=== PATIENT | female | born 1980 | race Caucasian/White ===

== ENCOUNTER 2016-06-13 14:35 | Emergency (ER) | payer OTHER ==
[~2016-06-13] VITALS: Ht 162.6 cm; Wt 66.2 kg
[~2016-06-13 14:35] MED LIST: OXYC1TAB3 PO
[2016-06-13 14:38] VITALS: TEMP 36.6; Ht 162.6 cm; Wt 66.2 kg
[2016-06-13] MEDS ORDERED: ONDANSETRON 4MG OD TAB PO STA (15:12)
[2016-06-13] MEDS ORDERED: CEPH500C PO (15:14)
[2016-06-13] MEDS ORDERED: HYDR-5688 PO (15:14)
[2016-06-13] MEDS ORDERED: SULF800T23 PO (15:14)
[2016-06-13] MEDS ORDERED: SULFAMETHOXAZOLE/TRIMETHOPRIM DS 800/160MG TAB PO ONE (15:15)
[2016-06-13] MEDS ORDERED: CEPHALEXIN MONOHYDRATE 250 MG CAP PO ONE (15:15)
[2016-06-13 15:27] VITALS: BP 134/74; PULSE 82; O2SAT 98
--- NOTE | 2016-06-13 17:40 | EMERGENCY ROOM VISIT NOTE ---
History First contact with patient: 14:41 Chief Complaint: BITE Stated Complaint: SWELLING/PAIN FROM A SPIDER BITE History of Present Illness The patient is a 36 year old female who presents to the Emergency Room with complaints of pain and swelling to the right upper aspect of her forehead. The patient states that she has had symptoms over the past 3-4 days. She is not diabetic. She believes that she may have been bitten [place] She believes there was pus coming from the wound earlier, but this has stopped. She does not have fever or chills. She does not have other complaints and rates her discomfort an 8/10. Review of Systems More than 10 systems were reviewed and otherwise negative with the exception of history of present illness. Past Medical/Surgical History Medical Problems: (1) Asthma (2) Hernia repair (3) History of - tubal ligation Family History Patient reports no known family medical history. Social History Smoking Status: Current Every Day Smoker Alcohol Use: none Marital Status: Housing Status: lives with family Occupation Status: unemployed Current/Historical Medications Scheduled Cephalexin Monohydrate (Keflex), 500 MG PO TID Sulfamethoxazole-Trimethoprim (Bactrim Ds 800MG/160MG), 1 TAB PO BID Scheduled PRN Hydrocodone/Acetaminophen 5MG/325MG ([place] 5MG/325MG), 1 TABLET PO Q6 PRN for Pain Allergies Coded Allergies: No Known Allergies (Unverified , 06/13/16) Physical Exam Vital Signs Date Time Temp Pulse Resp B/P Pulse Ox O2 Delivery O2 Flow Rate FiO2 06/13/16 15:27 82 18 134/74 98 Room Air 06/13/16 14:38 36.6 82 20 146/92 100 Room Air Pain Rating (0-10): 6.0 Physical Exam VITALS: Vitals are noted on the nurse's note and reviewed by myself. Vital signs stable. GENERAL: Well-developed, well-nourished, white female, who is in no acute distress and resting comfortably. Patient is cooperative with the examination. HEAD: There is a 3.5 cm diameter area of cellulitis over the right upper forehead. There appears to be a central mucous plug that was not easily removable. There is no obvious abscess. EARS: External ear normal. External auditory canals clear, tympanic membranes pearly benavides without erythema or effusion bilaterally. NECK: Supple without nuchal rigidity. No lymphadenopathy. No thyromegaly. Cervical spine is nontender. HEART: Regular rate and rhythm without murmurs gallops or rubs. LUNGS: Clear to auscultation bilaterally without wheezes, rales or rhonchi. No retractions or accessory muscle use. SKIN: The skin was with a possible early axillary abscess on the right. There is an area of induration without fluctuance measuring approximately 2 cm in diameter of the right axilla. Medical Decision & Procedures Medications Administered Medications (Trade) Dose Ordered Sig/Francisca Route Start Time Stop Time Status Last Admin Dose Admin Ondansetron HCl (Zofran Odt) 4 mg NOW STAT PO 06/13/16 15:12 06/13/16 15:13 DC 06/13/16 15:27 4 MG Trimethoprim/ Sulfamethoxazole (Septra Ds 800/ 160MG Tab) 1 tab NOW ONCE PO 06/13/16 15:15 06/13/16 15:16 DC 06/13/16 15:27 1 TAB Cephalexin Monohydrate (Keflex Cap) 500 mg NOW ONCE PO 06/13/16 15:15 06/13/16 15:16 DC 06/13/16 15:27 500 MG ED Course Physical exam and history were performed. Nursing notes and EMR were reviewed. Patient appears to have a cellulitis of her right upper forehead. She may also have a developing infection in her right axilla. The patient does not appear toxic on examination. She is not having drainage for culture. I discussed options of care with the patient and will start her on Bactrim and Keflex. She is given her first doses here in the department. The patient will need very close monitoring to ensure improvement of symptoms. I recommend that she follow with her primary care physician tomorrow for a recheck. She may also return to the emergency department in 24-36 hours for a recheck if she is not able to see by her primary care physician. If her symptoms continue to evolve and a distinct abscess is noted she was asked to return for incision and drainage. She was given Zofran by mouth here in the department as she was nauseated after I manipulated her infection. The patient will also be given a short course of pain medication. She was pleased with plan of care and voiced understanding. The chart was completed utilizing Dragon Speech Voice Recognition Software. Grammatical errors, random word insertions, pronoun errors, and incomplete sentences are an occasional consequence of this system due to software limitations, ambient noise, and hardware issues. Any formal questions or concerns about the content, text, or information contained within the body of this dictation should be directly addressed to the provider for clarification. . Medical Decision Differential diagnosis: Etiologies such as cellulitis, abscess, MRSA infection, DVT, necrotizing fasciitis, dermatitis, drug eruption, as well as others were entertained.. Impression Primary Impression: Cellulitis of forehead Departure Information Dispostion Home / Self-Care Condition GOOD Prescriptions Hydrocodone/Acetaminophen 5MG/325MG ([place] 5MG/325MG) Tab 1 TABLET PO Q6 Y for Pain, #10 TAB For Initial Treatment Prov: Rahat Davison PA-C 06/13/16 Cephalexin Monohydrate (Keflex) 500 Mg Cap 500 MG PO TID for 10 Days, #30 CAP Prov: Rahat Davison PA-C 06/13/16 Sulfamethoxazole-Trimethoprim (Bactrim Ds 800MG/160MG) 1 Tab Tab 1 TAB PO BID for 10 Days, #20 TAB Prov: Rahat Davison PA-C 06/13/16 Referrals Gonzales Metcalf M.D. (PCP) No Doctor, Assigned Forms HOME CARE DOCUMENTATION FORM, IMPORTANT VISIT INFORMATION Patient Instructions My [facility] Additional Instructions You were seen and evaluated today on an emergency basis only. This is not a substitute for, or an effort to provide, complete comprehensive medical care. It is not possible to recognize and treat all injuries or illnesses in a single emergency department visit. For this reason it is recommended that you followup with your primary care physician tomorrow for ongoing care and evaluation. If you are not able to be seen by your primary care physician we recommend you return to the ER tomorrow night or first thing Friday morning for recheck. For baseline pain relief you may alternate ibuprofen and acetaminophen every 4 hours for pain control. Take 600 mg ibuprofen (Advil) and then 4 hours later take 1000 mg acetaminophen (Tylenol). Do not take more than 3000 mg acetaminophen in a single day. Oxycodone (OxyIR) 5mg: Take ONE pill every SIX hours for breakthrough pain. Avoid alcohol, operating machinery or dangerous equipment, working on ladders or roofs, DRIVING, or situations where being under the influence may be dangerous. It is recommended to use an wefk-ppp-kxcnpto stool softener such as Colace, 100mg twice daily while taking this medication to avoid constipation. Trimethoprim-Sulfamethoxazole(Bactrim DS): Take one pill twice daily for 10 days for your skin infection. All antibiotics can cause diarrhea. If this occurs and you feel worse or it does not resolve in 1-2 days follow up with your doctor or return to the Emergency Department as this could be signs of serious underlying problems. Any medication can cause an allergic reaction, stop the pills immediately and return to the ER for rash, hives, breathing difficulties, or swelling. Cephalexin(Keflex) 500mg: Take one pill 3 times daily for 10 days for your skin infection. All antibiotics can cause diarrhea. If this occurs and you feel worse or it does not resolve in 1-2 days follow up with your doctor or return to the Emergency Department as this could be signs of serious underlying problems. Any medication can cause an allergic reaction, stop the pills immediately and return to the ER for rash, hives, breathing difficulties, or swelling. You are welcome to return to the emergency department anytime with new, worsening, or concerning symptoms.
== END 2016-06-13 15:33 | disposition home or self-care (01) ==
LOC: C.EDB 14:36
DX: L03.811 Cellulitis of head [any part, except face] (principal); J45.909 Unspecified asthma, uncomplicated; F17.200 Nicotine dependence, unspecified, uncomplicated; Z98.51 Tubal ligation status

== ENCOUNTER 2016-06-16 16:34 | Emergency (ER) | payer OTHER ==
[~2016-06-16] VITALS: Ht 162.6 cm; Wt 63.0 kg
[~2016-06-16 16:34] MED LIST changes: +CEPH500C PO; +HYDR-5688 PO; -OXYC1TAB3 PO; +SULF800T23 PO
[2016-06-16 16:45] VITALS: TEMP 36.8; Ht 162.6 cm; Wt 63.0 kg
[2016-06-16] MEDS ORDERED: CEFTRIAXONE SOD INJ 1 GM ADDVIAL IV STA (17:03)
[2016-06-16 17:26] LABS: BASO % 0.2 %; BASO ABS # 0.01 K/uL (0-0.2); COMPLETE YES; EOS % 0.8 %; HEMATOCRIT 42.3 % (37-47); IG% 0.2 %; LYMPH % 19.6 %; LYMPH ABS # 0.97 K/uL (1.2-3.4); MEAN CELL VOLUME 88.3 fL (80-100); MEAN CORPUSCULAR HGB CONC 32.9 g/dl (32-36); MEAN PLATELET VOLUME 9.9 fL (7.4-10.4); MONO % 2.4 %; NEUT % 76.8 %; PLATELET COUNT 408 K/uL (130-400); RED BLOOD COUNT 4.79 M/uL (4.2-5.4); WHITE BLOOD COUNT 4.95 K/uL (4.8-10.8)
--- NOTE | 2016-06-16 17:31 | EMERGENCY ROOM VISIT NOTE ---
History First contact with patient: 16:59 Chief Complaint: BITE Stated Complaint: SWOLLEN,PAINFUL SPIDER BITE History of Present Illness The patient is a 36 year old female who presents to the Emergency Department by private vehicle for evaluation of facial swelling. The patient reports that she was seen in this facility 2 days ago for a "spider bite" to the RIGHT-sided forehead. There is been no discharge or drainage from the area. She's been taking Bactrim and Keflex. She reports that the swelling to the forehead has improved, however she describes swelling below the eyes bilaterally. She reports feeling occasionally nauseated. She is not diabetic. The patient rates her current discomfort as an 8/10. She reports a mild headache. She denies any blurry vision, double vision, vomiting, or neck pain/stiffness. Review of Systems A complete 10-point Review of Systems was discussed with the patient, with pertinent positives and negatives listed in the History of Present Illness. All remaining Review of Systems questions can be considered negative unless otherwise specified. Past Medical/Surgical History Medical Problems: (1) Asthma (2) Hernia repair (3) History of - tubal ligation Family History Patient reports no known family medical history. Social History Smoking Status: Current Every Day Smoker Smokeless Tobacco Use: Yes Alcohol Use: none Marital Status: Housing Status: lives with family Occupation Status: unemployed Current/Historical Medications Scheduled Cephalexin Monohydrate (Keflex), 500 MG PO TID Sulfamethoxazole-Trimethoprim (Bactrim Ds 800MG/160MG), 1 TAB PO BID Scheduled PRN Oxycodone/Acetaminophen 5MG/325MG (Percocet 5MG/325MG), 1-2 TABS PO Q6 PRN for Pain Allergies Coded Allergies: No Known Allergies (Unverified , 06/13/16) Physical Exam Vital Signs Date Time Temp Pulse Resp B/P Pulse Ox O2 Delivery O2 Flow Rate FiO2 06/16/16 20:26 74 19 124/74 94 06/16/16 18:30 93 16 112/60 94 Room Air 06/16/16 16:45 36.8 119 18 120/85 99 Pain Rating (0-10): 8 Physical Exam VITAL SIGNS - Vital signs and nursing notes were reviewed. GENERAL - 36-year-old female appearing her stated age who is in no acute distress. Communicates well with provider and answers questions appropriately. SKIN - small area of abscess with central scab-like area. Surrounding induration. No significant erythema or warmth to touch. No fluctuance to palpation. No discharge or drainage. Mild edema noted to the infraorbital area bilaterally. No erythema or lethargic streaking. HEAD - Normocephalic, Atraumatic. No Aparicio's Sign or Raccoon's Eyes. No depressed skull fractures palpable. EYES - PERRL with EOMI bilaterally. Sclera anicteric. Palpebral conjunctiva pink and moist with no injection noted. EARS - No deformities of external structures noted on gross examination bilaterally. No pain elicited with palpation of the tragus bilaterally. External auditory canals without discharge or otorrhea. Tympanic membranes pearly benavides without retraction or bulging. NOSE - Midline and without cyanosis. No epistaxis or purulent drainage noted. Septum midline without deviation or septal hematoma noted. MOUTH/OROPHARYNX - Without perioral cyanosis. Buccal mucosa pink and moist and without leukoplakia. Tongue midline with equal elevation of palate bilaterally. No tonsillar hypertrophy, erythema, or exudates noted. NECK - Neck with FROM. Supple to palpation. No lymphadenopathy noted. No nuchal rigidity. LUNGS - Chest wall symmetric without accessory muscle use, intercostals retractions, or central cyanosis. Normal vesicular breath sounds CTA B/L. No wheezes, rales, or rhonchi appreciated. CARDIAC - RRR with S1/S2. No murmur, rubs, or gallops appreciated. NEUROLOGIC - Cranial nerves II through XII grossly intact. PSYCH - A&Ox3 and cooperates fully with examiner. Pt is very pleasant and interacts well with examiner. Medical Decision & Procedures ER Provider Diagnostic Interpretation: Radiological imaging and reports were reviewed by myself. Radiologist's Interpretation as follows: MAXILLOFACIAL CT WITH INTRAVENOUS CONTRAST HISTORY: pain/swelling to face - ?resolving abscess TECHNIQUE: Multiaxial CT images of the maxillofacial region were performed and reformatted in the coronal plane following the use of intravenous contrast. COMPARISON STUDY: Maxillofacial CT 10/10/2012. FINDINGS: There is a 15 x 8 mm right frontal scalp subcutaneous peripheral enhancing fluid collection consistent with an abscess. No underlying bony destruction. The paranasal sinuses and mastoid air cells are clear. No acute fractures identified. The globes and retrobulbar fat are intact. The carotid arteries and internal jugular veins are widely patent. The salivary glands enhance symmetrically. No cervical lymphadenopathy. IMPRESSION: A 15 x 8 mm right frontal scalp subcutaneous abscess. Laboratory Results 06/16/16 17:05 Red Blood Count 4.79, Mean Corpuscular Volume 88.3, Mean Corpuscular Hemoglobin 29.0, Mean Corpuscular Hemoglobin Concent 32.9, Mean Platelet Volume 9.9, Neutrophils (%) (Auto) 76.8, Lymphocytes (%) (Auto) 19.6, Monocytes (%) (Auto) 2.4, Eosinophils (%) (Auto) 0.8, Basophils (%) (Auto) 0.2, Neutrophils # (Auto) 3.80, Lymphocytes # (Auto) 0.97, Monocytes # (Auto) 0.12, Eosinophils # (Auto) 0.04, Basophils # (Auto) 0.01 06/16/16 17:05 Test 06/16/16 17:05 White Blood Count 4.95 K/uL (4.8-10.8) Red Blood Count 4.79 M/uL (4.2-5.4) Hemoglobin 13.9 g/dL (12.0-16.0) Hematocrit 42.3 % (37-47) Mean Corpuscular Volume 88.3 fL (80-100) Mean Corpuscular Hemoglobin 29.0 pg (25-34) Mean Corpuscular Hemoglobin Concent 32.9 g/dl (32-36) Platelet Count 408 K/uL (130-400) Mean Platelet Volume 9.9 fL (7.4-10.4) Neutrophils (%) (Auto) 76.8 % Lymphocytes (%) (Auto) 19.6 % Monocytes (%) (Auto) 2.4 % Eosinophils (%) (Auto) 0.8 % Basophils (%) (Auto) 0.2 % Neutrophils # (Auto) 3.80 K/uL (1.4-6.5) Lymphocytes # (Auto) 0.97 K/uL (1.2-3.4) Monocytes # (Auto) 0.12 K/uL (0.11-0.59) Eosinophils # (Auto) 0.04 K/uL (0-0.5) Basophils # (Auto) 0.01 K/uL (0-0.2) RDW Standard Deviation 48.0 fL (36.4-46.3) RDW Coefficient of Variation 14.8 % (11.5-14.5) Immature Granulocyte % (Auto) 0.2 % Immature Granulocyte # (Auto) 0.01 K/uL (0.00-0.02) Anion Gap 6.0 mmol/L (3-11) Est Creatinine Clear Calc Drug Dose 55.5 ml/min Estimated GFR () 66.9 Estimated GFR (Non- 57.7 BUN/Creatinine Ratio 11.4 (10-20) Calcium Level 9.4 mg/dl (8.5-10.1) Medications Administered Medications (Trade) Dose Ordered Sig/Francisca Route Start Time Stop Time Status Last Admin Dose Admin Ceftriaxone Sodium (Rocephin Inj) 1 gm NOW STAT IV 06/16/16 17:03 06/16/16 17:06 DC 06/16/16 17:33 1 GM Oxycodone/ Acetaminophen (Percocet 5-325mg Tab) 1 tab NOW ONCE PO 06/16/16 20:15 06/16/16 20:16 DC 06/16/16 20:14 1 TAB Oxycodone/ Acetaminophen (Percocet 5/ 325MG Home Pack) 1 homepack UD ONCE PO 06/16/16 20:15 06/16/16 20:16 DC 06/16/16 20:14 1 HOMEPACK Procedure I examined the patient. Verbal consent was obtained to perform the procedure. After saline and Betadine cleansing and 1.0 mL of 1% buffered lidocaine anesthesia, the abscess was unroofed with a 16-gauge needle. A small amount of purulent material was released with more expressed by pressure. A swab was obtained for culture. The abscess cavity was then copiously irrigated with sterile saline under pressure. The area was cleaned with sterile saline and dressed with bacitracin and a bulky bandage. The patient tolerated the procedure well. ED Course Patient was seen and evaluated by myself. Previous emergency department visit note was reviewed. Labs were drawn, saline lock in place. Patient was treated with 1 g of IV Rocephin. CT the facial bones with IV contrast was ordered. Laboratory results demonstrate no acute leukocytosis, worrisome anemia, or bandemia. The patient has no significant electrolyte abnormalities. Imaging results as above. Imaging results and labs were reviewed with the patient who acknowledges understanding. Incision and drainage was performed as described above. Wound was cultured for sensitivity. Patient was provided 1 Percocet for pain. She'll follow-up with her primary care provider on Friday for recheck. She will return for any changing or worsening symptoms. Patient discharged home in good condition. Medical Decision Given the patient's presentation and exam findings, I did elect to perform the above-mentioned workup. The patient resents today with an abscess to the RIGHT- sided forehead. There is some surrounding in duration. No significant fluctuance to palpation. She has no fever. CT was performed to evaluate any underlying conditions. She did have infraorbital edema noted bilaterally which is likely secondary to the resolving abscess. Labs are unremarkable. CT are unremarkable. She was treated with IV Rocephin. She will continue her Keflex and Bactrim at home her cultures. She will follow-up with her primary care provider on Friday for recheck. She will return sooner for change or worsening symptoms. Patient discharged home in good condition. In the evaluation and treatments patient, the following differential diagnoses were considered: Facial cellulitis, allergic reaction, sinusitis, amongst others. Impression Primary Impression: Abscess or cellulitis of forehead Departure Information Dispostion Home / Self-Care Condition GOOD Prescriptions Oxycodone/Acetaminophen 5MG/325MG (PERCOCET 5MG/325MG) Tab 1-2 TABS PO Q6 Y for Pain, #8 TAB For Initial Treatment Prov: Rah Noe PA-C 06/16/16 Referrals No Doctor, Assigned (PCP) Patient Instructions My [facility] Additional Instructions You were seen in the Emergency Department for Incision and Drainage of your forehead abscess. Please follow-up with her primary care provider in 48 hours for recheck. You have been prescribed Percocet to be used for pain control. This is a narcotic medication. You cannot drive or consume alcohol while on this medicine. This medicine should only be used for pain that cannot be controlled with [id number] pain medicines. Continue your Keflex and Bactrim as prescribed. Proper wound care is essential for adequate wound healing and infection prevention. You can shower and clean the wound with soap and water. Do not scour over the wound. Pat dry with a towel. Do not submerse the wound (i.e. bathe or dish wash) until the sutures have been removed. You can use an antibiotic ointment with a dressing over the wound for the next 3-4 days. After this time you may leave the wound dry and open to the air. If crust develops over the wound you can use a Q-tip to apply a 1:1 peroxide:water solution to clean the wound. Look for signs of infection of the wound including: increased pain, swelling, foul discharge, streaking, or increased temperature. If any of these are noticed you should return to the Emergency Department for further assessment and treatment. As with any laceration you may have received nerve damage to the surrounding tissues. This damage may or may not be permanent. For pain control, you can use the following [id number] medicines (if >12 yo): - Regular strength (325mg/tab) Tylenol (acetaminophen) 2 tabs every 4-6 hours as needed. Do not exceed 12 tablets in a 24 hour period. Avoid taking more than 4 grams (4000 mg) of Tylenol per day. This includes any other sources of acetaminophen you may take on a regular basis. - Regular strength (200 mg/tab) Advil (ibuprofen) 1-2 tabs every 4-6 hours as needed. Do not exceed a dose of 3200 mg per day. Return to the emergency department if your symptoms worsen despite treatment course outlined above.
[2016-06-16 17:52] LABS: BLOOD UREA NITROGEN 14 mg/dl (7-18); BUN/CREATININE RATIO 11.4 (10-20); CALCIUM 9.4 mg/dl (8.5-10.1); CARBON DIOXIDE 29 mmol/L (21-32); CHLORIDE 105 mmol/L (98-107); GLUCOSE 146 mg/dl (70-99); SODIUM 140 mmol/L (136-145)
[2016-06-16] MEDS ORDERED: OPTIRAY 320 IV PRN (18:15)
--- NOTE | 2016-06-16 18:22 | DIAGNOSTIC IMAGING REPORT ---
MAXILLOFACIAL CT WITH INTRAVENOUS CONTRAST HISTORY: pain/swelling to face - ?resolving abscess TECHNIQUE: Multiaxial CT images of the maxillofacial region were performed and reformatted in the coronal plane following the use of intravenous contrast. COMPARISON STUDY: Maxillofacial CT 10/10/2012. FINDINGS: There is a 15 x 8 mm right frontal scalp subcutaneous peripheral enhancing fluid collection consistent with an abscess. No underlying bony destruction. The paranasal sinuses and mastoid air cells are clear. No acute fractures identified. The globes and retrobulbar fat are intact. The carotid arteries and internal jugular veins are widely patent. The salivary glands enhance symmetrically. No cervical lymphadenopathy. IMPRESSION: A 15 x 8 mm right frontal scalp subcutaneous abscess. Electronically signed by: Emerson Sue M.D. 06/16/2016 6:20 PM Dictated Date/Time: 06/16/2016 6:16 PM
[2016-06-16] MEDS ORDERED: XYLOCAINE 1%/SOD BICARB 20 ML VIAL INFIL ONE (19:00)
[2016-06-16] MEDS ORDERED: OXYC-57 PO (20:08)
[2016-06-16] MEDS ORDERED: PERCOCET HOME PACK PO ONE (20:15)
[2016-06-16] MEDS ORDERED: OXYCODONE/ACETAMINOPHEN 5-325 TAB PO ONE (20:15)
[2016-06-16 20:26] VITALS: BP 124/74; PULSE 74; O2SAT 94
--- NOTE | 2016-06-18 17:39 | Pharmacy Progress Note ---
ED Pharmacist Culture FollowUp Date of Service: Jun 18, 2016. Patient was sent home with prescriptions for cephalexin and Bactrim. Bactrim should cover the Staph aureus (MRSA) growing from the patient's facial abscess culture. Spoke w patient who notes that she was not able to get an appointment with her PCP until next week. However, she also noted that her swelling is down and her wound is not draining. Counseled to stop cephalexin but continue Bactrim for full course. Emphasized importance of adherence and keeping appointment with PCP. Patient acknowledged understanding. Case discussed with Dr. Tomas.
== END 2016-06-16 20:15 | disposition home or self-care (01) ==
LOC: C.EDB 16:35
DX: L02.01 Cutaneous abscess of face (principal); J45.909 Unspecified asthma, uncomplicated; Z98.51 Tubal ligation status; F17.200 Nicotine dependence, unspecified, uncomplicated

== ENCOUNTER 2017-06-17 15:24 | Emergency (ER) | payer OTHER ==
[~2017-06-17] VITALS: Ht 162.6 cm; Wt 74.3 kg
[2017-06-17 15:28] VITALS: TEMP 36.9; Ht 162.6 cm; Wt 74.3 kg
[2017-06-17] MEDS ORDERED: TRAM-453 PO (15:45)
[2017-06-17] MEDS ORDERED: CLIN300C2 PO (15:45)
--- NOTE | 2017-06-17 15:47 | EMERGENCY ROOM VISIT NOTE ---
ED Visit Note First contact with patient: 15:31 CHIEF COMPLAINT: Toothache HISTORY OF PRESENT ILLNESS: This 37-year-old female patient presented to the emergency department, ambulatory, with progressive gum pain for the last 4 days. The patient had all of her teeth removed, 24 teeth, and [place]. The patient states she was placed on 7 days of penicillin. She was feeling better, however the past few days, her symptoms of pain and swelling have worsened. She has had a small amount of pus out of the front gums. She does note increased swelling in the lower gums. The patient has continued to smoke postop. She is concerned there could be an infection. She was given 20 pain pills from her surgeon, however has used them all. She denies any radiation of pain into the face. She denies a fever. She is scheduled for follow-up appointment later this week with her surgeon. They rate their pain a 7/10 and the ibuprofen and Tylenol they have been taking has not relieved the pain. REVIEW OF SYSTEMS: A 6 system review of systems was completed with positives and pertinent negatives listed in the HPI. ALLERGIES: None MEDICATIONS: None PMH: None SOCIAL HISTORY: The patient lives locally with family. She denies drug, alcohol, tobacco use. PHYSICAL EXAM: Vitals are noted on the nurse's note and reviewed by myself. Vital signs stable. Temperature 36.9C orally. GENERAL: This is a 37-year-old white female, in no acute distress, nondiaphoretic, well-developed well- nourished. Mouth: All teeth have been surgically removed. The lower gum and buccal mucosa is slightly erythematous, edematous, and there is a small amount of purulent drainage from the anterior aspect. The remainder of the pharynx and tonsils are without erythema, edema, or exudate. The airway is patent. There is no facial swelling, cervical or submandibular lymphadenopathy. The patient appears uncomfortable and in pain. EARS: External auditory canals clear, tympanic membranes pearly benavides without erythema or effusion bilaterally. ED COURSE: The patient was seen and evaluated as above. She will be treated for a infection with antibiotics and a short course of pain medication. The patient was encouraged to follow-up closely with her oral surgeon. She was agreeable to the assessment and plan. Discharge instructions reviewed. The patient was discharged home in good condition. I attest that I have personally reviewed the patient's current medication list. Patient was found to have normal blood pressure on screening and does not require follow-up. Differential diagnosis includes odontalgia, periapical abscess, acute sinusitis , osteomyelitis, gingivitis, pulpitis, dental caries, periodontitis, malignancy , and others DIAGNOSIS: Periapical abscess The chart was completed utilizing [employer] voice recognition software. Grammatical errors, random word insertions, pronoun errors, and incomplete sentences are an occasional consequence of this system due to software limitations, ambient noise, and hardware issues. Any formal questions or concerns about the content, text, or information contained within the body of this dictation should be directly addressed to the provider for clarification. Problem List Medical Problems: (1) Asthma Status: Chronic (2) Hernia repair Status: Resolved (3) History of - tubal ligation Status: Resolved Current/Historical Medications Scheduled Clindamycin Hcl (Cleocin), 300 MG PO QID Tramadol Hcl (Ultram), 50 MG PO Q8H Allergies Coded Allergies: No Known Allergies (Unverified , 06/13/16) Vital Signs Date Time Temp Pulse Resp B/P (MAP) Pulse Ox O2 Delivery O2 Flow Rate FiO2 06/17/17 16:01 96 122/97 97 06/17/17 15:28 36.9 98 16 149/91 99 Room Air Departure Information Impression Primary Impression: Periapical abscess Dispostion Home / Self-Care Condition GOOD Prescriptions Tramadol Hcl (ULTRAM) 50 Mg Tab 50 MG PO Q8H, #9 TAB PRN PAIN Prov: Chelsea Tompkins PA-C 06/17/17 Clindamycin Hcl (CLEOCIN) 300 Mg Cap 300 MG PO QID for 7 Days, #28 CAP Prov: Chelsea Tompkins PA-C 06/17/17 Referrals No Doctor, Assigned (PCP) Patient Instructions ED Abscess Dental, [facility] Additional Instructions You have been treated in the Emergency Department for Dental Pain. You have been prescribed Tramadol to be used for pain control. This is a narcotic medication. You cannot drive or consume alcohol while on this medicine. This medicine should only be used for pain that cannot be controlled with [id number] pain medicines. You were prescribed Clindamycin to be taken 4x daily x7 days. This is an antibiotic. All antibiotics have the potential to cause diarrhea. Stop this medication and contact a medical provider if you were to develop any significant adverse side effects including: wheezing, shortness of breath, passing out, vomiting, or a diffuse rash. Always take antibiotics as directed and COMPLETE the ENTIRE course regardless of the improvement of your symptoms. For pain control, you can use the following saep-yro-qjwzbwz medicines (if >12 yo): Ibuprofen(Motrin, Advil) may be used for fever or pain. Use 600mg every six hours as needed. Take with food. Avoid using more than 2400mg in a 24 hour period. Do not use 2400mg per day for more than three consecutive days without physician direction. Prolonged inappropriate use can lead to stomach upset or ulcers. (AND/OR) Acetaminophen(Tylenol) may be used for fever or pain. Use 1000mg every six hours as needed. Avoid using more than 3000mg in a 24 hour period. Refrain from smoking cigarettes or using chewing tobacco until you have been evaluated by your dentist. Keeping beverages lukewarm and consuming soft foods can decrease your pain. Warm compresses over the affected area may offer some relief. You MUST seek evaluation of your dental pain by a dentist following your visit to the Emergency Department. The Emergency Department is not capable of treating dental issues long-term. You should call your dentist as soon as possible to make an appointment for evaluation of your dental pain. Return to the emergency department if you develop the following symptoms despite treatment course outlined above: fever, intractable pain, increased redness, swelling, or purulent discharge.
[2017-06-17 16:01] VITALS: BP 122/97; PULSE 96; O2SAT 97
== END 2017-06-17 16:07 | disposition home or self-care (01) ==
LOC: C.ED 15:26 → C.EDD 16:07
DX: K04.7 Periapical abscess without sinus (principal)